=== PATIENT | male | born 1945 | race Caucasian/White ===

== ENCOUNTER 2016-06-01 10:42 | Outpatient (CLI) | payer MEDICARE, OTHER | END 2016-06-01 10:43 | DX: D75.1 Secondary polycythemia (principal); I10 Essential (primary) hypertension; Z12.5 Encounter for screening for malignant neoplasm of prostate; E29.1 Testicular hypofunction | CPT/HCPCS: 36415; 80053; 80061; 84403; 85025; G0103 ==

== ENCOUNTER 2016-06-12 15:04 | Outpatient (CLI) | payer MEDICARE, OTHER | END 2016-06-12 15:05 | disposition home or self-care (01) | DX: R09.89 Other specified symptoms and signs involving the circulatory and respiratory systems (principal) ==

== ENCOUNTER 2017-07-14 08:00 | Outpatient (CLI) | payer MEDICARE, OTHER ==
[2017-07-14 13:44] LABS: BASOPHILS # (AUTO) 0.1 10^3/uL (0.0-0.1); BASOPHILS % (AUTO) 0.9 %; EOSINOPHILS # (AUTO) 0.2 10^3/uL (0.0-0.7); EOSINOPHILS % (AUTO) 2.8 %; HGB - HEMOGLOBIN 13.2 g/dL (14.0-18.0); LYMPHOCYTES % (AUTO) 26.2 %; MEAN CORPUSCULAR HEMOGLOBIN 30.8 pg (27.0-31.0); MEAN CORPUSCULAR HGB CONC 34.2 g/dL (32.0-36.0); MEAN CORPUSCULAR VOLUME 90.2 fL (80.0-94.0); MEAN PLATELET VOLUME 8.8 fL (7.4-11.4); MONOCYTES # (AUTO) 0.8 10^3/uL (0.0-1.0); MONOCYTES % (AUTO) 9.9 %; NEUTROPHILS # (AUTO) 4.7 10^3/uL (1.5-6.6); NEUTROPHILS % (AUTO) 60.2 %; PLT - PLATELET COUNT 259 10^3/uL (130-450); RED BLOOD COUNT 4.28 10^6/uL (4.70-6.10); RED CELL DISTRIBUTION WIDTH 13.5 % (12.0-15.0); WHITE BLOOD COUNT 7.7 x10^3/uL (4.8-10.8)
[2017-07-14 14:19] LABS: PSA SCREEN (Z12.5) 0.88 ng/mL (0.000-2.000)
[2017-07-14 14:31] LABS: ALBUMIN 4.3 g/dL (3.2-5.5); ALBUMIN/GLOBULIN RATIO 1.7 (1.0-2.2); ALKALINE PHOSPHATASE 45 IU/L (42-121); ALT ALANINE AMINOTRANSFERASE 28 IU/L (10-60); AST ASPARTATE AMINOTRANSFERASE 29 IU/L (10-42); BILIRUBIN,TOTAL 0.4 mg/dL (0.2-1.0); BUN - BLOOD UREA NITROGEN 31 mg/dL (6-20); CALCIUM 9.1 mg/dL (8.5-10.3); CARBON DIOXIDE - CO2 30 mmol/L (21-32); CHLORIDE 98 mmol/L (101-111); CHOLESTEROL 139 mg/dL; CREATININE 1.1 mg/dL (0.6-1.2); GFR - MDRD 66 (>89); GLUCOSE 110 mg/dL (70-100); HDL CHOLESTEROL 68 mg/dL; LDL CHOLESTEROL,CALCULATED 56 mg/dL; LDL/HDL RATIO 0.8 (<3.6); SODIUM 135 mmol/L (135-145); TOTAL PROTEIN 6.9 g/dL (6.7-8.2); VLDL CHOLESTEROL 15 mg/dL
[2017-07-14 14:38] LABS: HB2 TOTAL 14.6 g/dL; HEMOGLOBIN A1C 0.61 g/dL
== END 2017-07-14 08:01 | disposition home or self-care (01) ==
LOC: LAB.WCP 08:00
PROVIDERS: ATTEND Family Medicine
DX: E78.5 Hyperlipidemia, unspecified (principal); R73.01 Impaired fasting glucose; N40.1 Benign prostatic hyperplasia with lower urinary tract symptoms; E29.1 Testicular hypofunction; R53.83 Other fatigue; Z12.5 Encounter for screening for malignant neoplasm of prostate
CPT/HCPCS: 36415; 80053; 80061; 83036; 84403; 84443; 85025; G0103; 83721; 84153

== ENCOUNTER 2017-08-03 08:00 | Outpatient (CLI) | payer MEDICARE, OTHER ==
[2017-08-03 19:18] LABS: CALCIUM 9.2 mg/dL (8.5-10.3); CREATININE 1.1 mg/dL (0.6-1.2)
== END 2017-08-03 08:01 | disposition home or self-care (01) ==
LOC: LAB.WCP 08:00
PROVIDERS: ATTEND Family Medicine
DX: I10 Essential (primary) hypertension (principal)
CPT/HCPCS: 36415; 80048

== ENCOUNTER 2017-08-23 10:59 | Outpatient (CLI) | payer MEDICARE, OTHER | END 2017-08-23 11:00 | disposition home or self-care (01) | LOC: SC 10:59 | PROVIDERS: ATTEND Internal Medicine Pulmonary Disease | DX: G47.33 Obstructive sleep apnea (adult) (pediatric) (principal) | CPT/HCPCS: 99203; G0463; 99212 ==

== ENCOUNTER 2018-08-16 10:06 | Outpatient (CLI) | payer MEDICARE, OTHER ==
[2018-08-16 12:33] LABS: BASOPHILS % (AUTO) 0.5 %; EOSINOPHILS # (AUTO) 0.2 10^3/uL (0.0-0.7); EOSINOPHILS % (AUTO) 2.6 %; HGB - HEMOGLOBIN 13.9 g/dL (14.0-18.0); LYMPHOCYTES # (AUTO) 1.5 10^3/uL (1.5-3.5); LYMPHOCYTES % (AUTO) 22.2 %; MEAN CORPUSCULAR HEMOGLOBIN 30.2 pg (27.0-31.0); MEAN CORPUSCULAR HGB CONC 33.9 g/dL (32.0-36.0); MEAN CORPUSCULAR VOLUME 89.3 fL (80.0-94.0); MEAN PLATELET VOLUME 8.4 fL (7.4-11.4); MONOCYTES # (AUTO) 0.6 10^3/uL (0.0-1.0); MONOCYTES % (AUTO) 9.3 %; NEUTROPHILS # (AUTO) 4.4 10^3/uL (1.5-6.6); NEUTROPHILS % (AUTO) 65.4 %; PLT - PLATELET COUNT 273 10^3/uL (130-450); RED BLOOD COUNT 4.58 10^6/uL (4.70-6.10); RED CELL DISTRIBUTION WIDTH 13.7 % (12.0-15.0); WHITE BLOOD COUNT 6.8 x10^3/uL (4.8-10.8)
[2018-08-16 12:51] LABS: PSA SCREEN (Z12.5) 1.08 ng/mL (0.000-2.000)
[2018-08-16 12:52] LABS: HB2 TOTAL 14.7 g/dL; HEMOGLOBIN A1C 0.55 g/dL; HEMOGLOBIN A1C % 5.6 % (4.6-6.2)
[2018-08-16 12:55] LABS: ALBUMIN 4.3 g/dL (3.2-5.5); ALBUMIN/GLOBULIN RATIO 1.5 (1.0-2.2); ALKALINE PHOSPHATASE 54 IU/L (42-121); ALT ALANINE AMINOTRANSFERASE 26 IU/L (10-60); AST ASPARTATE AMINOTRANSFERASE 28 IU/L (10-42); BILIRUBIN,TOTAL 0.5 mg/dL (0.2-1.0); BUN - BLOOD UREA NITROGEN 28 mg/dL (6-20); CALCIUM 9.1 mg/dL (8.5-10.3); CARBON DIOXIDE - CO2 29 mmol/L (21-32); CHLORIDE 97 mmol/L (101-111); CHOL/HDL RATIO 2.1 (<5.0); CHOLESTEROL 149 mg/dL; CREATININE 1.2 mg/dL (0.6-1.2); GFR - MDRD 59 (>89); GLUCOSE 115 mg/dL (70-100); HDL CHOLESTEROL 70 mg/dL; LDL CHOLESTEROL,CALCULATED 66 mg/dL; LDL/HDL RATIO 0.9 (<3.6); SODIUM 135 mmol/L (135-145); TOTAL PROTEIN 7.2 g/dL (6.7-8.2); VLDL CHOLESTEROL 13 mg/dL
== END 2018-08-16 23:59 | disposition home or self-care (01) ==
LOC: LAB.WCP 10:06
PROVIDERS: ATTEND Family Medicine
DX: R73.01 Impaired fasting glucose (principal); E78.5 Hyperlipidemia, unspecified; Z12.5 Encounter for screening for malignant neoplasm of prostate
CPT/HCPCS: 36415; 80061; 83036; 84403; G0103; 80053; 83721; 84153; 84443; 85025

== ENCOUNTER 2018-08-21 08:19 | Outpatient (CLI) | payer MEDICARE, OTHER ==
--- NOTE | 2018-08-21 15:20 | Ultrasound Report ---
Reason: STRAIN OF RIGHT ACHILLES TENDON, INITIAL ENCTR Procedure Date: 08/21/2018 Accession Number: [id number] / [id number] Procedure: US - Duplex Venous Limited CPT Code: FULL RESULT: EXAM: RIGHT LOWER EXTREMITY VENOUS ULTRASOUND EXAM DATE: 08/21/2018 09:01 AM. CLINICAL HISTORY: Right calf swelling. Concern for DVT. COMPARISON: None. TECHNIQUE: Real-time sonographic vascular imaging was performed by the vest tailor through the lower extremity utilizing both color-flow and Doppler spectral analysis. Multiple advertising representative static images were saved for review. FINDINGS: Common Femoral Vein (CFV): Normal. CFV-GSV Junction: Normal. Profunda Femoral Vein (PFV): Normal. Femoral Vein (FV) Prox: Normal. Femoral Vein (FV) Mid: Normal. Femoral Vein (FV) Dist: Normal. Popliteal Vein: Normal. Posterior Tibial Veins: Normal. Peroneal Veins: Normal. Other: None. IMPRESSION: No evidence for deep venous thrombosis in the right lower extremity. RADIA
== END 2018-08-21 08:20 | disposition home or self-care (01) ==
LOC: DI 08:19
PROVIDERS: ATTEND Orthopaedic Surgery Sports Medicine
DX: M79.89 Other specified soft tissue disorders (principal); S86.011A Strain of right Achilles tendon, initial encounter
CPT/HCPCS: 93971

== ENCOUNTER 2018-08-31 12:09 | Outpatient (CLI) | payer MEDICARE, OTHER ==
[2018-09-03 00:06] LABS: ALBUMIN 4.2 g/dL (3.8-4.8); ALPHA 1 GLOBULIN 0.3 g/dL (0.2-0.3); ALPHA 2 GLOBULIN 0.8 g/dL (0.5-0.9); BETA 1 GLOBULIN 0.4 g/dL (0.4-0.6); BETA 2 GLOBULIN 0.3 g/dL (0.2-0.5); GAMMA GLOBULIN 0.9 g/dL (0.8-1.7)
== END 2018-08-31 12:10 | disposition home or self-care (01) ==
LOC: LAB.WCP 12:09
PROVIDERS: ATTEND Family Medicine
DX: G62.9 Polyneuropathy, unspecified (principal)
CPT/HCPCS: 36415; 82607; 84155; 84165

== ENCOUNTER 2018-11-01 13:19 | Outpatient (CLI) | payer MEDICARE, OTHER ==
--- NOTE | 2018-11-01 16:57 | SLEEP CARE CONSULTATION ---
Information from patient questionnaire entered by Alyssa Carrillo. I have reviewed and concur with the information entered by Alyssa Carrillo. This document represents the service I personally performed and the decisions made by me, Leslie Rainey MD, [facility]. History of Present Illness Previous diagnosis: Severe, Obstructive Sleep Apnea-Hypopnea Syndrome AHI: 60.3 Reason for CPAP/BiPAP follow up: annual Equipment type: CPAP Equipment obtained from: [employer] Mask brand: [id number] Prior sleep studies: Yes Year and Where: 2015 [facility] HPI additional information: HPI: Mr. Farr returned with his today for follow up of nasal CPAP therapy. He was diagnosed to have severe obstructive sleep apnea-hypopnea syndrome. The patient wears a Respironics DreamWear full face mask. He reports using the device nightly and all through the night. The compliance report shows usage in 162 nights out of the past 180 nights, averaging 5.7 hours a night. He complained of no particular problem with the device such as soreness on the face, dry nose, epistaxis, nasal congestion or headache. He thinks that the pressure is comfortable. On the CPAP therapy he notices improvement in his sleep quality, and that he wakes up feeling fresher in the morning and more awake/alert during the day. His notices no snore at all. The average residual AHI is 6.2; and air leak, 10.6 L/min. The 90th percentile pressure is 9 cmH2O. CPAP Compliance Data - Data Reviewed with Patient Average duration of nightly device use: 5H 31M Compliance rate %: 97 Current pressure setting (cmH2O): 5-9 Subjective Patient concerns: reports: dry mouth, nose, throat Initial [place] Sleepiness Scale score: 8 Current Felt Sleepiness Scale score: 7 Allergies and Home Medications Home medication list reviewed: Yes Review of Systems Review of systems same as previous: Yes Impression and Plan IMPRESSION: 1. Obstructive Sleep Apnea-Hypopnea Syndrome, severe, with the patient doing fairly well on nasal CPAP therapy. He has good compliance and significant clinical improvement. The current pressure appears slightly ineffective but most likely due to excessive air leak which, in turn, due to his not getting new mask cushions. Overall, he is very satisfied with treatment and plans to continue with it long-term. No adjustment is necessary today. The patient would like to switch durable medical supplier. PLAN: 1. Continue with autoCPAP set at 5 - 9 cmH2O with oxygen supplement at 2 L/minute. 2. Try to lose weight 3. Prescription made for CPAP supplies so that may switch durable medical supplier. 4. Return in one year for follow up or earlier if there is any problem with the treatment. I spent 100% of this 15 minute visit face to face with the patient with greater than 50% of this was spent time counseling the patient and coordination of care.
== END 2018-11-01 13:20 | disposition home or self-care (01) ==
LOC: SC 13:19
PROVIDERS: ATTEND Internal Medicine Pulmonary Disease
DX: G47.33 Obstructive sleep apnea (adult) (pediatric) (principal)
CPT/HCPCS: 99213; G0463; 99212

== ENCOUNTER 2019-06-01 08:00 | Outpatient (CLI) | payer MEDICARE, OTHER | END 2019-06-01 23:59 | disposition home or self-care (01) | LOC: LAB.R 08:00 | PROVIDERS: ATTEND Family Medicine | DX: N39.0 Urinary tract infection, site not specified (principal) | CPT/HCPCS: 87086; 87181 ==

== ENCOUNTER 2019-11-27 08:00 | Outpatient (CLI) | payer MEDICARE, OTHER ==
[2019-11-27 19:13] LABS: BASOPHILS % (AUTO) 0.6 %; EOSINOPHILS # (AUTO) 0.1 10^3/uL (0.0-0.7); EOSINOPHILS % (AUTO) 1.9 %; LYMPHOCYTES # (AUTO) 1.9 10^3/uL (1.5-3.5); LYMPHOCYTES % (AUTO) 26.5 %; MEAN CORPUSCULAR HEMOGLOBIN 30.5 pg (27.0-31.0); MEAN CORPUSCULAR HGB CONC 32.7 g/dL (32.0-36.0); MEAN CORPUSCULAR VOLUME 93.2 fL (80.0-94.0); MONOCYTES # (AUTO) 0.7 10^3/uL (0.0-1.0); MONOCYTES % (AUTO) 9.8 %; NEUTROPHILS # (AUTO) 4.2 10^3/uL (1.5-6.6); NEUTROPHILS % (AUTO) 60.6 %; PLT - PLATELET COUNT 267 10^3/uL (130-450); RED BLOOD COUNT 4.59 10^6/uL (4.70-6.10); RED CELL DISTRIBUTION WIDTH 13.8 % (12.0-15.0)
[2019-11-27 19:43] LABS: ALBUMIN 4.3 g/dL (3.2-5.5); ALBUMIN/GLOBULIN RATIO 1.5 (1.0-2.2); ALKALINE PHOSPHATASE 53 IU/L (42-121); ALT ALANINE AMINOTRANSFERASE 25 IU/L (10-60); AST ASPARTATE AMINOTRANSFERASE 24 IU/L (10-42); BILIRUBIN,TOTAL 0.7 mg/dL (0.2-1.0); BUN - BLOOD UREA NITROGEN 26 mg/dL (6-20); CALCIUM 9.1 mg/dL (8.5-10.3); CARBON DIOXIDE - CO2 32 mmol/L (21-32); CHLORIDE 99 mmol/L (101-111); CHOL/HDL RATIO 1.9 (<5.0); CHOLESTEROL 153 mg/dL; GLUCOSE 94 mg/dL (70-100); HDL CHOLESTEROL 79 mg/dL; LDL CHOLESTEROL,CALCULATED 60 mg/dL; LDL/HDL RATIO 0.8 (<3.6); SODIUM 139 mmol/L (135-145); TOTAL PROTEIN 7.1 g/dL (6.7-8.2); VLDL CHOLESTEROL 14 mg/dL
[2019-11-27 20:08] LABS: HEMOGLOBIN A1c% 5.6 % (4.27-6.07)
== END 2019-11-27 23:59 | disposition home or self-care (01) ==
LOC: LAB.WCP 08:00
PROVIDERS: ATTEND Family Medicine
DX: I10 Essential (primary) hypertension (principal); E78.5 Hyperlipidemia, unspecified; R73.01 Impaired fasting glucose; N40.1 Benign prostatic hyperplasia with lower urinary tract symptoms; Z79.899 Other long term (current) drug therapy; E29.1 Testicular hypofunction
CPT/HCPCS: 36415; 80053; 80061; 83036; 83721; 84153; 84403; 84443; 85025

== ENCOUNTER 2019-12-27 06:59 | Outpatient (CLI) | payer MEDICARE, OTHER ==
--- NOTE | 2019-12-27 13:04 | Ultrasound Report ---
PROCEDURE: Retroperitoneal Limited INDICATIONS: AAA TECHNIQUE: Real time scanning was performed of the aorta and iliac arteries, with image documentatio n. COMPARISON: CT chest 05/31/2015 FINDINGS: Aorta: Proximal aortic diameter measures 2.9 x 2.9 cm. Mid-aorta measures 2.7 x 2.7 cm. Distal aor tic diameter is 1.9 x 2.2 cm. Iliac arteries: Right common iliac artery measures 1.4 x 1.4 cm. Left common iliac artery measures 1.5 x 1.4 cm. IMPRESSION: No abdominal aortic aneurysm. Reviewed by: Keila Rand MD, PhD on 12/27/2019 12:02 PM TIGIST Approved by: Keila Rand MD, PhD on 12/27/2019 12:02 PM TIGIST Station ID: [id number]
== END 2019-12-27 07:00 | disposition home or self-care (01) ==
LOC: DI 06:59
PROVIDERS: ATTEND Family Medicine
DX: I71.4 Abdominal aortic aneurysm, without rupture (principal)
CPT/HCPCS: 76775

== ENCOUNTER 2020-10-24 11:33 | Outpatient (CLI) | payer MEDICARE, OTHER ==
--- NOTE | 2020-10-24 12:04 | SLEEP CARE CONSULTATION ---
Information from patient questionnaire entered by Rianna Bateman. I have reviewed and concur with the information entered by Rianna Bateman. This document represents the service I personally performed and the decisions made by , Bela Torres ARNP. History of Present Illness Service Date and Time: 10/24/2020 1133 Previous diagnosis: Very Severe, Obstructive Sleep Apnea-Hypopnea Syndrome AHI: 60.3 (in 2015) Reason for follow up: annual (last seen 10/2019) Equipment type: CPAP Equipment obtained from: [employer] (getting supplies as needed) Mask style: Full face Backup mask available: Yes (old mask) Last cushion change: 6 weeks Prior sleep studies: Yes Year and Where: 2016 - [facility] HPI additional information: MARYJANE MARTINEZ was diagnosed to have very severe, AHI 60.3, obstructive sleep apnea-hypopnea syndrome and returned today for CPAP therapy annual follow-up. CPAP Compliance Data - Data Reviewed with Patient Average duration of nightly device use: 6 hr 7 min Compliance rate %: 92 (180 days) Current pressure setting (cmH2O): 5-9 Average residual AHI: 3.7 Subjective Missed days of use due to: reports: travel Patient concerns: reports: mask leak noise (doesn't wake him up, but hears it; he fixes it). denies: aerophagia, mask discomfort, air blowing in eyes, condensation in mask/hose, nasal congestion, dry mouth, nose, throat, epistaxis, other Observed to snore while using device: No Current pressure setting perceived as: comfortable On therapy, patient: reports: sleeping better, awakening more refreshed, being more awake and alert during the day, more rested overall. denies: drowsiness while driving Initial [place] Sleepiness Scale score: 8 (in 2018) Current [place] Sleepiness Scale score: 7 Allergies and Home Medications Home medication list reviewed: Yes (Rigvastigmine for mental abilities pre neurologist) Review of Systems Review of systems same as previous: No (neuropathy in legs) Physical Exam Heart Rate: 76 O2 Saturation: 94 Height: 6 ft 1 in Weight: 262 lb Body Mass Index: 34.5 BMI Classification: Obese Impression and Plan 1. Obstructive Sleep Apnea-Hypopnea Syndrome, very severe, with good treatment compliance and good apnea control. On CPAP therapy, the patient has better sleep quality and is more rested overall. Patient is satisfied with current treatment and has significant improvement of his sleep apnea. He occasionally has some mask leak noises but adjusting his mask results them. He states they do not normally wake him up but it will bother his . I do not think we need any adjustments today and patient is good for the next year. Patient's apnea sever ity and rationale for treatment to reduce apnea, improve sleep quality and reduce cardiovascular and cerebrovascular events was reviewed. I also reviewed the benefit of consistent device use of CPAP for depression. Patient was encouraged to try to lose weight. * Continue auto CPAP pressure at 5-9 cmH2O * Notify me if snoring with mask or feeling that the pressure is too much or too little * Attempt to lose weight * Call this office if any problems using CPAP * Return for follow up in 1 year, or sooner if concerns arise Counseling Topics: Spare mask, Weight loss health impact Visit Type: In Office Time Spent with Patient (minutes): 16 Provider Statement: I spent 100% of the Face to Face Visit with the patient with greater than 50% spent counseling the patient and coordination of care.
== END 2020-10-24 11:34 | disposition home or self-care (01) ==
LOC: SC 11:33
PROVIDERS: ATTEND Nurse Practitioner Family
DX: G47.33 Obstructive sleep apnea (adult) (pediatric) (principal); E66.9 Obesity, unspecified; Z68.34 Body mass index [BMI] 34.0-34.9, adult
CPT/HCPCS: 99212; G0463

== ENCOUNTER 2021-02-10 08:00 | Outpatient (CLI) | payer MEDICARE, OTHER ==
[2021-02-10 12:00] LABS: BASOPHILS # (AUTO) 0.1 10^3/uL (0.0-0.1); BASOPHILS % (AUTO) 0.7 %; EOSINOPHILS # (AUTO) 0.2 10^3/uL (0.0-0.7); EOSINOPHILS % (AUTO) 2.9 %; HCT - HEMATOCRIT 40.8 % (42.0-52.0); HGB - HEMOGLOBIN 13.7 g/dL (14.0-18.0); LYMPHOCYTES % (AUTO) 29.2 %; MEAN CORPUSCULAR HEMOGLOBIN 30.5 pg (27.0-31.0); MEAN CORPUSCULAR HGB CONC 33.6 g/dL (32.0-36.0); MEAN CORPUSCULAR VOLUME 90.9 fL (80.0-94.0); MEAN PLATELET VOLUME 10.7 fL (7.4-11.4); MONOCYTES # (AUTO) 0.7 10^3/uL (0.0-1.0); MONOCYTES % (AUTO) 10.3 %; NEUTROPHILS # (AUTO) 3.9 10^3/uL (1.5-6.6); NEUTROPHILS % (AUTO) 56.6 %; PLT - PLATELET COUNT 269 10^3/uL (130-450); RED BLOOD COUNT 4.49 10^6/uL (4.70-6.10); RED CELL DISTRIBUTION WIDTH 13.4 % (12.0-15.0); WHITE BLOOD COUNT 6.9 x10^3/uL (4.8-10.8)
[2021-02-10 12:25] LABS: ALBUMIN 4.3 g/dL (3.2-5.5); ALBUMIN/GLOBULIN RATIO 1.6 (1.0-2.2); ALKALINE PHOSPHATASE 56 IU/L (42-121); ALT ALANINE AMINOTRANSFERASE 26 IU/L (10-60); AST ASPARTATE AMINOTRANSFERASE 23 IU/L (10-42); BUN - BLOOD UREA NITROGEN 31 mg/dL (6-20); CALCIUM 9.2 mg/dL (8.5-10.3); CARBON DIOXIDE - CO2 29 mmol/L (21-32); CHLORIDE 98 mmol/L (101-111); CHOL/HDL RATIO 1.9 (<5.0); CHOLESTEROL 148 mg/dL; GFR - MDRD 72 (>89); GLUCOSE 96 mg/dL (70-100); HDL CHOLESTEROL 80 mg/dL; LDL CHOLESTEROL,CALCULATED 57 mg/dL; LDL/HDL RATIO 0.7 (<3.6); POTASSIUM 3.3 mmol/L (3.5-5.0); SODIUM 138 mmol/L (135-145); TRIGLYCERIDES 57 mg/dL; VLDL CHOLESTEROL 11 mg/dL
[2021-02-10 12:49] LABS: ESTIMATED AVERAGE GLUCOSE 123 mg/dL (70-100); HEMOGLOBIN A1c% 5.9 % (4.27-6.07)
== END 2021-02-10 23:59 ==
LOC: LAB.WCP 08:00
PROVIDERS: ATTEND Family Medicine
DX: I10 Essential (primary) hypertension (principal); R73.01 Impaired fasting glucose; N40.1 Benign prostatic hyperplasia with lower urinary tract symptoms; E29.1 Testicular hypofunction; N13.8 Other obstructive and reflux uropathy
CPT/HCPCS: 36415; 80053; 80061; 81599; 83036; 83721; 84153; 84402; 84403; 85025

== ENCOUNTER 2021-04-22 16:04 | Outpatient (CLI) | payer MEDICARE, OTHER | END 2021-04-22 23:59 | disposition home or self-care (01) | LOC: LAB.N 16:04 | PROVIDERS: ATTEND Nurse Practitioner | DX: L03.90 Cellulitis, unspecified (principal) | CPT/HCPCS: 87070; 87077; 87181; 87205 ==

== ENCOUNTER 2021-05-19 10:09 | Outpatient (CLI) | payer MEDICARE, OTHER ==
[2021-05-19 12:58] LABS: BASOPHILS % (AUTO) 0.5 %; EOSINOPHILS # (AUTO) 0.2 10^3/uL (0.0-0.7); EOSINOPHILS % (AUTO) 2.4 %; HCT - HEMATOCRIT 42.9 % (42.0-52.0); HGB - HEMOGLOBIN 14.4 g/dL (14.0-18.0); LYMPHOCYTES # (AUTO) 2.1 10^3/uL (1.5-3.5); MEAN CORPUSCULAR HEMOGLOBIN 30.4 pg (27.0-31.0); MEAN CORPUSCULAR HGB CONC 33.6 g/dL (32.0-36.0); MEAN CORPUSCULAR VOLUME 90.5 fL (80.0-94.0); MONOCYTES # (AUTO) 0.8 10^3/uL (0.0-1.0); MONOCYTES % (AUTO) 10.8 %; NEUTROPHILS # (AUTO) 4.3 10^3/uL (1.5-6.6); PLT - PLATELET COUNT 227 10^3/uL (130-450); RED BLOOD COUNT 4.74 10^6/uL (4.70-6.10); RED CELL DISTRIBUTION WIDTH 12.9 % (12.0-15.0); WHITE BLOOD COUNT 7.5 x10^3/uL (4.8-10.8)
[2021-05-19 13:22] LABS: ALBUMIN 4.4 g/dL (3.2-5.5); ALBUMIN/GLOBULIN RATIO 1.4 (1.0-2.2); ALKALINE PHOSPHATASE 56 IU/L (42-121); ALT ALANINE AMINOTRANSFERASE 25 IU/L (10-60); AST ASPARTATE AMINOTRANSFERASE 26 IU/L (10-42); BUN - BLOOD UREA NITROGEN 33 mg/dL (6-20); CALCIUM 9.3 mg/dL (8.5-10.3); CARBON DIOXIDE - CO2 30 mmol/L (21-32); CHLORIDE 97 mmol/L (101-111); CHOLESTEROL 160 mg/dL; CREATININE 0.9 mg/dL (0.6-1.2); GFR - MDRD 82 (>89); GLUCOSE 100 mg/dL (70-100); HDL CHOLESTEROL 81 mg/dL; LDL CHOLESTEROL,CALCULATED 66 mg/dL; LDL/HDL RATIO 0.8 (<3.6); POTASSIUM 3.5 mmol/L (3.5-5.0); SODIUM 137 mmol/L (135-145); TOTAL PROTEIN 7.6 g/dL (6.7-8.2); TRIGLYCERIDES 66 mg/dL; VLDL CHOLESTEROL 13 mg/dL
[2021-05-19 16:27] LABS: ESTIMATED AVERAGE GLUCOSE 117 mg/dL (70-100); HEMOGLOBIN A1c% 5.7 % (4.27-6.07)
== END 2021-05-19 10:10 | disposition home or self-care (01) ==
LOC: LAB.N 10:09
PROVIDERS: ATTEND Family Medicine
DX: E78.5 Hyperlipidemia, unspecified (principal); R73.01 Impaired fasting glucose; E29.1 Testicular hypofunction
CPT/HCPCS: 36415; 80053; 80061; 81599; 83036; 83721; 84153; 85025

== ENCOUNTER 2021-05-19 10:33 | Outpatient (CLI) | payer MEDICARE, OTHER ==
[2021-05-19 21:25] VITALS: BP 139/89
--- NOTE | 2021-05-19 21:25 | SLEEP CARE CONSULTATION ---
Information from patient questionnaire entered by Tracy Andrews MA. I have reviewed and concur with the information entered by Tracy Andrews MA. This document represents the service I personally performed and the decisions made by me, Leslie Rainey MD, [facility]. History of Present Illness Service Date and Time: 05/19/2021 1033 Previous diagnosis: Very Severe, Obstructive Sleep Apnea-Hypopnea Syndrome AHI: 60.3 (in 2015) Reason for follow up: other (7 MONTH F/U, RX NEW MACHINE,) Equipment type: CPAP Equipment obtained from: [employer] (getting supplies as needed) Mask style: Full face Prior sleep studies: Yes Year and Where: 2015 - [facility] Sleep [facility] HPI additional information: Mr. Farr returned today for his annual follow up of nasal CPAP therapy. He was diagnosed to have severe obstructive sleep apnea-hypopnea syndrome. The patient wears a Respironics DreamWear full face mask. He now gets his supplies from [employer]. He reports using the device nightly and all through the night. The compliance report shows usage in 177 nights out of the past 180 nights, averaging 6.1 hours a night. The > 4-hour compliance rate for the past 180 days is 88%. He complained of no problem with the device such as soreness on the face, dry nose, epistaxis, nasal congestion or headache. He thinks that the pressure of 5 9 cmH2O is comfortable. On the CPAP therapy he notices improvement in his sleep quality, and that he wakes up feeling fresher in the morning and more awake/alert during the day. His notices no snore at all. The average residual AHI is 6.1 (was 6.2 last year); and air leak, 3.7 (was 10.6) L/min. The 90th percentile pressure is 9 cmH2O. Sleep Study - Results Prior sleep studies: Yes Year and Where: 2015 - [facility] Subjective Patient concerns: reports: dry mouth, nose, throat Initial [place] Sleepiness Scale score: 8 (in 2017) Current [place] Sleepiness Scale score: 7 (2021) Allergies and Home Medications Drug allergies reviewed: Yes Home medication list reviewed: Yes Review of Systems Review of systems same as previous: Yes Physical Exam Vital signs obtained and entered by: Horacio ANDREWS CMA AAFL Blood Pressure: 139/89 (RIGHT, PULSE 73, RESP 19,) Cuff size: wrist Heart Rate: 77 O2 Saturation: 97 (N95) Height: 6 ft 1 in Weight: 260 lb (CLOTHES) Body Mass Index: 34.2 BMI Classification: Obese Impression and Plan IMPRESSION: 1. Obstructive Sleep Apnea-Hypopnea Syndrome, severe (AHI was 60.3 on 03/28/2015 at the [facility]), with the patient continuing to do well on nasal CPAP therapy. He has good compliance and significant clinical improvement. The cu rrent pressure appears effective and comfortable. Because the CPAP is now older than the useful life of 5 years, I will order the patient a new one and make it an autoCPAP set between 5 and 9 cmH2O. PLAN: 1. Continue with autoCPAP set at 5 - 9 cmH2O with oxygen supplement at 2 L/minute. 2. Prescription made for a new autoCPAP, heated humidifier, and related supplies. 3. Return for follow up after one month of using the new CPAP. Prescriptions: Auto CPAP Follow up with Sleep Care in: 3 months Visit Type: In Office Time Spent with Patient (minutes): 15 Provider Statement: I spent 100% of the Face to Face Visit with the patient with greater than 50% spent counseling the patient and coordination of care.
== END 2021-05-19 10:34 | disposition home or self-care (01) ==
LOC: SC 10:33
PROVIDERS: ATTEND Internal Medicine Pulmonary Disease
DX: G47.33 Obstructive sleep apnea (adult) (pediatric) (principal); E66.9 Obesity, unspecified; Z68.34 Body mass index [BMI] 34.0-34.9, adult; E78.5 Hyperlipidemia, unspecified; E29.1 Testicular hypofunction; R73.01 Impaired fasting glucose
CPT/HCPCS: 36415; 80053; 80061; 83036; 84153; 84402; 84403; 85025; 99212; G0463; 81599; 83721

== ENCOUNTER 2021-09-01 11:17 | Outpatient (CLI) | payer MEDICARE, OTHER ==
--- NOTE | 2021-09-01 11:45 | SLEEP CARE CONSULTATION ---
Information from patient questionnaire entered by Tracy Andrews MA. I have reviewed and concur with the information entered by Tracy Andrews MA. This document represents the service I personally performed and the decisions made by me, Leslie Rainey MD, [facility]. History of Present Illness Service Date and Time: 09/01/2021 1117 Previous diagnosis: Very Severe, Obstructive Sleep Apnea-Hypopnea Syndrome AHI: 60.3 (in 2016) Reason for follow up: first compliance (SET UP 06/13/2021, RESMED,) Equipment type: CPAP Equipment obtained from: [employer] (getting supplies as needed) Mask style: Full face Prior sleep studies: Yes Year and Where: 2015 - [facility] Sleep [facility] HPI additional information: Mr. Farr returned today for his annual follow up of nasal CPAP therapy. He was diagnosed to have severe obstructive sleep apnea-hypopnea syndrome. The patient wears a Respironics DreamWear full face mask. He recently acquired a ResMed AirSense 11 from [employer]. He reports using the device nightly and all through the night. The compliance report shows usage in 58 nights out of the past 60 nights, averaging 5.9 hours a night. The > 4-hour compliance rate for the past 60 days is 83%. He complained of the device not turning itself off but no problem with the device such as soreness on the face, dry nose, epistaxis, nasal congestion or headache. He thinks that the pressure of 5 9 cmH2O is comfortable. On the CPAP therapy he notices improvement in his sleep quality, and that he wakes up feeling fresher in the morning and more awake/alert during the day. His [place] Sleepiness Scale score is 9. His notices no snore at all. The average residual AHI is 4.6 (was 6.1 on his old machine); and air leak, 4.2 (was 10.6) L/min. The 90th percentile pressure is 9.8. cmH2O. Sleep Study - Results Prior sleep studies: Yes Year and Where: 2015 - [facility] Sleep Lab CPAP Compliance Data - Data Reviewed with Patient Average duration of nightly device use: 5 HOURS 44 MINUTES Compliance rate %: 87 (07/30/21 - 08/28/21) Current pressure setting (cmH2O): 5-9 Average residual AHI: 4.2 Central apnea: 1.0 Obstructive apnea: 0.6 Hypopnea: 1.9 Average large leak: 21.6 Subjective Initial [place] Sleepiness Scale score: 8 (in 2018) Allergies and Home Medications Known drug allergies: No Drug allergies reviewed: Yes Home medication list reviewed: Yes Physical Exam Vital signs obtained and entered by: MEMO BERNAL Blood Pressure: 131/94 (RESP 18, PULSE 84, RIGHT,) Cuff size: wrist Heart Rate: 91 O2 Saturation: 97 (N95) Height: 6 ft 1 in Weight: 255 lb 8 oz Body Mass Index: 33.7 BMI Classification: Obese Impression and Plan IMPRESSION: 1. Obstructive Sleep Apnea-Hypopnea Syndrome, severe (AHI was 60.3 on 03/28/2015 at the [facility]), with the patient continuing to do well on nasal CPAP therapy. He has good compliance and significant clinical improvement. The current pressure appears effective and comfortable. No adjustment is necessary today. I show him that the device does turn itself off when he takes the mask off. At home it does not turn off because he puts the mask in the sack cleaner which creates some resistance at the mask. PLAN: 1. Continue with autoCPAP set at 5 - 9 cmH2O with oxygen supplement at 2 L/minute. 2. Return for follow up in a year or earlier if there is any problem. Follow up with Sleep Care in: 1 year Visit Type: In Office Time Spent with Patient (minutes): 15 Provider Statement: I spent 100% of the Face to Face Visit with the patient with greater than 50% spent counseling the patient and coordination of care.
[2021-09-01 11:46] VITALS: BP 131/94
== END 2021-09-01 11:18 | disposition home or self-care (01) ==
LOC: SC 11:17
PROVIDERS: ATTEND Internal Medicine Pulmonary Disease
DX: G47.33 Obstructive sleep apnea (adult) (pediatric) (principal); E66.9 Obesity, unspecified; Z68.33 Body mass index [BMI] 33.0-33.9, adult
CPT/HCPCS: 99212; G0463

== ENCOUNTER 2022-07-03 10:18 | Outpatient (CLI) | payer MEDICARE, OTHER ==
[2022-07-03 12:25] LABS: BASOPHILS % (AUTO) 0.6 %; EOSINOPHILS # (AUTO) 0.1 10^3/uL (0.0-0.7); EOSINOPHILS % (AUTO) 2.2 %; HCT - HEMATOCRIT 45.4 % (42.0-52.0); HGB - HEMOGLOBIN 15.1 g/dL (14.0-18.0); LYMPHOCYTES # (AUTO) 1.6 10^3/uL (1.5-3.5); LYMPHOCYTES % (AUTO) 26.2 %; MEAN CORPUSCULAR HEMOGLOBIN 30.2 pg (27.0-31.0); MEAN CORPUSCULAR HGB CONC 33.3 g/dL (32.0-36.0); MEAN CORPUSCULAR VOLUME 90.8 fL (80.0-94.0); MEAN PLATELET VOLUME 10.3 fL (7.4-11.4); MONOCYTES # (AUTO) 0.7 10^3/uL (0.0-1.0); MONOCYTES % (AUTO) 11.4 %; NEUTROPHILS # (AUTO) 3.7 10^3/uL (1.5-6.6); NEUTROPHILS % (AUTO) 59.4 %; PLT - PLATELET COUNT 280 10^3/uL (130-450); RED CELL DISTRIBUTION WIDTH 13.4 % (12.0-15.0); WHITE BLOOD COUNT 6.2 x10^3/uL (4.8-10.8)
[2022-07-03 12:41] LABS: ESTIMATED AVERAGE GLUCOSE 117 mg/dL (70-100); HEMOGLOBIN A1c% 5.7 % (4.27-6.07)
[2022-07-03 12:57] LABS: ALBUMIN 4.4 g/dL (3.2-5.5); ALBUMIN/GLOBULIN RATIO 1.6 (1.0-2.2); ALKALINE PHOSPHATASE 52 IU/L (42-121); ALT ALANINE AMINOTRANSFERASE 29 IU/L (10-60); AST ASPARTATE AMINOTRANSFERASE 28 IU/L (10-42); BILIRUBIN,TOTAL 0.6 mg/dL (0.2-1.0); BUN - BLOOD UREA NITROGEN 31 mg/dL (6-20); CALCIUM 9.2 mg/dL (8.5-10.3); CARBON DIOXIDE - CO2 32 mmol/L (21-32); CHLORIDE 100 mmol/L (101-111); CHOL/HDL RATIO 1.7 (<5.0); CHOLESTEROL 142 mg/dL; CREATININE 0.9 mg/dL (0.6-1.2); GFR - MDRD 82 (>89); GLUCOSE 107 mg/dL (70-100); HDL CHOLESTEROL 83 mg/dL; LDL CHOLESTEROL,CALCULATED 49 mg/dL; LDL/HDL RATIO 0.6 (<3.6); POTASSIUM 3.6 mmol/L (3.5-5.0); SODIUM 137 mmol/L (135-145); TOTAL PROTEIN 7.1 g/dL (6.7-8.2); TRIGLYCERIDES 49 mg/dL; VLDL CHOLESTEROL 10 mg/dL
[2022-07-04 18:07] LABS: FREE TESTOSTERONE(DIRECT) 7.8 pg/mL (6.6-18.1)
== END 2022-07-03 10:19 | disposition home or self-care (01) ==
LOC: LAB.N 10:18
PROVIDERS: ATTEND Nurse Practitioner Family
DX: I10 Essential (primary) hypertension (principal); Z79.899 Other long term (current) drug therapy; E66.9 Obesity, unspecified; E29.1 Testicular hypofunction
CPT/HCPCS: 36415; 80053; 80061; 83036; 83721; 84402; 84403; 85025

== ENCOUNTER 2022-08-13 10:19 | Outpatient (CLI) | payer MEDICARE, OTHER ==
--- NOTE | 2022-08-13 10:48 | Sleep Patient Instructions ---
Sleep Center Visit Summary - Patient Visit Information Reason for Visit: Annual followup for PAP therapy - Patient Instructions Additional Instructions: You will continue with CPAP therapy with pressure set at 5-9 cmH2O with 2L oxygen bled through machine at night. A supply prescription will be updated with your DME. We encourage you to continue to try to lose weight. Please follow up with the sleep care office in 1 year. - Clinic Information Contact: [facility] [address] [place] [address] [email or web address] T: [phone]
--- NOTE | 2022-08-13 10:56 | SLEEP CARE CONSULTATION ---
Information from patient questionnaire entered by Katalina Foote. I have reviewed and concur with the information entered by Katalina Foote. This document represents the service I personally performed and the decisions made by , Bela Torres ARNP. History of Present Illness Service Date and Time: 08/13/2022 1019 Previous diagnosis: Very Severe, Obstructive Sleep Apnea-Hypopnea Syndrome AHI: 60.3 (in 2015) Reason for follow up: annual (08/2021) Accompanied by: Spouse Equipment type: CPAP (RESMED Airsense 11, s/u 08/1943) Equipment obtained from: [employer] (getting supplies as needed) Mask style: Full face Backup mask available: Yes (old mask) Last cushion change: 6 weeks Prior sleep studies: Yes Year and Where: [facility] HPI additional information: MARYJANE MARTINEZ was diagnosed to have very severe, AHI 60.3, obstructive sleep apnea-hypopnea syndrome and returned today for CPAP therapy annual follow-up. Sleep Study - Results Prior sleep studies: Yes Year and Where: [address] [place] [address] Sleep Lab CPAP Compliance Data - Data Reviewed with Patient Average duration of nightly device use: 5 HRS 37 MINS Compliance rate %: 82 (02/13/22-08/11/22; 176/180 days used) Current pressure setting (cmH2O): 5-9 Average residual AHI: 2.8 Central apnea: 0.5 Obstructive apnea: 0.2 Hypopnea: 2.1 Average large leak: 2.2 lpm On Oxygen: Yes (2L ) Subjective Patient concerns: reports: dry mouth, nose, throat (occasionally). denies: aerophagia, mask discomfort, air blowing in eyes, mask leak noise, condensation in mask/hose, nasal congestion, epistaxis Observed to snore while using device: No Current pressure setting perceived as: comfortable On therapy, patient: reports: sleeping better, awakening more refreshed, being more awake and alert during the day, more rested overall. denies: drowsiness while driving Initial [place] Sleepiness Scale score: 8 (in 2017) Current [place] Sleepiness Scale score: 10 (08/13/22) Allergies and Home Medications Known drug allergies: No Drug allergies reviewed: Yes Home medication list reviewed: Yes (no changes) Allergy and home medication list: Allergies No Known Drug Allergies Allergy (Verified 08/12/22 09:54) Review of Systems Review of systems same as previous: Yes (no changes) Physical Exam Vital signs obtained and entered by: KATALINA Collado MA Blood Pressure: 110/64 (LEFT ARM) Cuff size: regular Heart Rate: 61 O2 Saturation: 96 Height: 6 ft 1 in Weight: 257 lb 9.6 oz Body Mass Index: 34.0 BMI Classification: Obese Impression and Plan 1. Obstructive Sleep Apnea-Hypopnea Syndrome, very severe, with good treatment compliance and good apnea control. On CPAP therapy, the patient has better sleep quality and is more rested overall. Patient's accompanies him today. They are moving and need assistance in ensuring he can continue his nocturnal oxygen through the CPAP. They will need a new DME supplier at the new location. I will do a transfer of DME supplier with his supply prescription update so they can select a national company to get his supplies and oxygen from until he can estab edu with a new provider for his care. He is to continue on 2L oxygen at night through the CPAP. Patient has significant improvement of their sleep apnea and is satisfied with current CPAP therapy. Patient's apnea severity and rationale for treatment to reduce apnea, improve sleep quality and reduce cardiovascular and cerebrovascular events was reviewed. I also reviewed the benefit of consistent device use of CPAP for depression. 2. Obesity, unspecified. Currently patients BMI is 34. Obesity increases the risk of apnea, CPAP pressure requirements and overall health risks especially cardiovascular and diabetes. Thus patient is advised to lose weight. * Continue auto CPAP pressure at 5-9 cmH2O with 2L oxygen bled in through CPAP * Update supplies * Notify me if snoring with mask or feeling that the pressure is too much or too little * Attempt to lose weight * Call this office if any problems using CPAP * Return for follow up in 1 year, or sooner if concerns arise Continue with device pressure at (cmH2O): 5-9 with 2L oxygen Counseling Topics: Spare mask, Weight loss health impact Visit Type: In Office Time Spent with Patient (minutes): 29 Provider Statement: I spent 100% of the Face to Face Visit with the patient with greater than 50% spent counseling the patient and coordination of care.
[2022-08-13 10:58] VITALS: BP 110/64
== END 2022-08-13 10:20 | disposition home or self-care (01) ==
LOC: SC 10:19
PROVIDERS: ATTEND Nurse Practitioner Family
DX: G47.33 Obstructive sleep apnea (adult) (pediatric) (principal); E66.9 Obesity, unspecified; Z68.34 Body mass index [BMI] 34.0-34.9, adult
CPT/HCPCS: 99213; G0463; 99212